=== PATIENT | male | born 1975 | race Caucasian/White ===

== ENCOUNTER 2017-12-12 18:51 | Emergency (ER) | payer OTHER ==
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
--- NOTE | 2017-12-14 08:01 | CR ---
Thoracic spine: AP and lateral views of the thoracic spine were obtained. Vertebral body heights and disc spaces are maintained. Minimal scattered endplate osteophytes are seen. Minimal scoliosis is noted. Pedicles are intact. No subluxation or fracture is seen. Impression: 1. Minimal scattered endplate osteophytes and minimal scoliosis. 2. Nothing acute is appreciated on two-view thoracic spine study. Diagnostic code #2
== END 2017-12-12 21:01 | disposition home or self-care (01) ==
LOC: JD.ED 18:51
DX: S23.9XXA Sprain of unspecified parts of thorax, initial encounter (principal); V89.2XXA Person injured in unspecified motor-vehicle accident, traffic, initial encounter; Y99.0 Civilian activity done for income or pay
CPT/HCPCS: 72070; 72070-26; 99283; 99284